=== PATIENT | male | born 1965 | race Hispanic/Latino ===

== ENCOUNTER 2018-05-05 22:50 | Emergency (ER) | payer MEDICARE, MEDICAID ==
[2018-05-05] MEDS ORDERED: NACL 0.9% 1000 ML 1,000 ML IV ONE (23:46)
[2018-05-06 00:12] LABS: Hematocrit 47.2 % (35.5-45.6); Hemoglobin 15.5 gm/dl (11.8-15.2); Mean Corpuscular HGB Conc 33 % (32-34); Mean Corpuscular Volume 86 fl (84-94); Platelet Count 235 K/mm3 (140-440); Red Blood Count 5.48 M/mm3 (3.65-5.03); Red Cell Distribution Width 15.1 % (13.2-15.2)
[2018-05-06] MEDS ORDERED: ZOFRAN IV ONE (00:33)
[2018-05-06] MEDS ORDERED: NACL 0.9% 1000 ML 1,000 ML IV ONE (00:33)
[2018-05-06 00:34] LABS: Alanine Aminotransferase 30 units/L (7-56); Albumin 4.2 g/dL (3.9-5); BUN/Creatinine Ratio 13; Blood Urea Nitrogen 10 mg/dL (9-20); Hemolysis Index 15
--- NOTE | 2018-05-06 01:27 | Emergency Department Report ---
<OSCAR VELEZ - Last Filed: 05/06/18 01:49> ED General Adult HPI - General Chief complaint: Abdominal Pain Stated complaint: ABDOMINAL PAIN Time Seen by Provider: 05/06/18 00:32 Source: patient Mode of arrival: Wheelchair Limitations: Physical Limitation, Other - History of Present Illness Initial comments: Patient presents to the emergency department with his caregiver for abdominal pain nausea vomiting. The patient is hearing impaired and does not have an sound recording technician present. When asked via writing if the patient has any chest pain he responds no. -: Sudden Location: abdomen Radiation: non-radiation Severity scale (0 -10): 7 Consistency: constant Improves with: none Worsens with: none Associated Symptoms: denies other symptoms - Related Data Previous Rx's Medication Instructions Recorded Last Taken Type Dicyclomine [Bentyl] 20 mg PO TID PRN #20 bottle 05/06/18 Unknown Rx Ondansetron [Zofran Odt] 4 mg PO Q6H PRN #20 tab.rapdis 05/06/18 Unknown Rx Promethazine [Phenergan TAB] 25 mg PO Q6HR PRN #12 tab 05/06/18 Unknown Rx Allergies Allergy/AdvReac Type Severity Reaction Status Date / Time carrot Allergy Nausea Verified 05/05/18 23:46 codeine Allergy Headache Verified 05/05/18 23:46 egg Allergy Hives Verified 05/05/18 23:45 latex Allergy Rash Verified 05/05/18 23:45 ED Review of Systems Comment: All other systems reviewed and negative Constitutional: denies: chills, fever Eyes: denies: eye pain, eye discharge, vision change ENT: denies: ear pain, throat pain Respiratory: denies: cough, shortness of breath, wheezing Cardiovascular: denies: chest pain, palpitations Endocrine: no symptoms reported Gastrointestinal: abdominal pain. denies: nausea, diarrhea Genitourinary: denies: urgency, dysuria Musculoskeletal: denies: back pain, joint swelling, arthralgia Skin: denies: rash, lesions Neurological: denies: headache, weakness, paresthesias Psychiatric: denies: anxiety, depression Hematological/Lymphatic: denies: easy bleeding, easy bruising ED Past Medical Hx - Past Medical History Hx Diabetes: Yes Hx Seizures: Yes Additional medical history: Hearing Impaired, Cerebral Palsy - Surgical History Hx Cholecystectomy: Yes - Social History Smoking Status: Never Smoker Substance Use Type: None - Medications Home Medications: Home Medications Medication Instructions Recorded Confirmed Last Taken Type Dicyclomine [Bentyl] 20 mg PO TID PRN #20 bottle 05/06/18 Unknown Rx Ondansetron [Zofran Odt] 4 mg PO Q6H PRN #20 tab.rapdis 05/06/18 Unknown Rx Promethazine [Phenergan TAB] 25 mg PO Q6HR PRN #12 tab 05/06/18 Unknown Rx ED Physical Exam - General Limitations: Physical Limitation, Other ED Medical Decision Making - Lab Data Result diagrams: 05/05/18 23:54 05/05/18 23:54 Lab Results 05/05/18 05/05/18 05/05/18 Range/Units 23:37 23:54 23:54 WBC 18.4 H (4.5-11.0) K/mm3 RBC 5.48 H (3.65-5.03) M/mm3 Hgb 15.5 H (11.8-15.2) gm/dl Hct 47.2 H (35.5-45.6) % MCV 86 (84-94) fl MCH 28 (28-32) pg MCHC 33 (32-34) % RDW 15.1 (13.2-15.2) % Plt Count 235 (140-440) K/mm3 Seg Neutrophils % [employer] Sodium 141 (137-145) mmol/L Potassium 3.8 (3.6-5.0) mmol/L Chloride 99.8 (98-107) mmol/L Carbon Dioxide 25 (22-30) mmol/L Anion Gap 20 mmol/L BUN 10 (9-20) mg/dL Creatinine 0.8 (0.8-1.5) mg/dL Estimated GFR > 60 ml/min BUN/Creatinine Ratio 13 % Glucose 180 H (75-100) mg/dL POC Glucose 136 H (70-105) Calcium 9.0 (8.4-10.2) mg/dL Total Bilirubin 1.10 (0.1-1.2) mg/dL AST 23 (5-40) units/L ALT 30 (7-56) units/L Alkaline Phosphatase 61 (35-129) units/L Total Protein 6.7 (6.3-8.2) g/dL Albumin 4.2 (3.9-5) g/dL Albumin/Globulin Ratio 1.7 % Lipase 74 H (13-60) units/L - Radiology Data Radiology results: report reviewed - Medical Decision Making We were eventually able to contact the patient's sound recording technician who is in route to interpret for the patient ED Disposition Clinical Impression: Abdominal pain, Nausea & vomiting Disposition: -01 TO HOME OR SELFCARE Is pt being admited?: No Does the pt Need Aspirin: No Condition: Stable Instructions: Acute Nausea and Vomiting (ED), Abdominal Pain (ED) Additional Instructions: return if worse Prescriptions: Dicyclomine [Bentyl] 20 mg PO TID PRN #20 bottle PRN Reason: abdominal pain Ondansetron [Zofran Odt] 4 mg PO Q6H PRN #20 tab.rapdis PRN Reason: Nausea Promethazine [Phenergan TAB] 25 mg PO Q6HR PRN #12 tab PRN Reason: Nausea Referrals: MONICA KRISHNA MD [Primary Care Provider] - 3-5 Days [facility] [Provider Group] - 3-5 Days [facility] [Provider Group] - 3-5 Days [facility] [Outside] - 3-5 Days [facility] [Provider Group] - 3-5 Days [facility] [Provider Group] - 3-5 Days <LEONARD REYES S - Last Filed: 05/12/18 18:10> ED Review of Systems ROS: Stated complaint: ABDOMINAL PAIN Other details as noted in HPI ED Course Vital Signs 05/05/18 05/05/18 05/06/18 23:08 23:20 00:10 Temperature 98 F Pulse Rate 118 H 117 H Respiratory 18 Rate Blood Pressure 125/78 125/58 Blood Pressure [Right] O2 Sat by Pulse 96 100 93 Oximetry 05/06/18 05/06/18 05/06/18 00:15 00:31 00:45 Temperature Pulse Rate Respiratory Rate Blood Pressure Blood Pressure [Right] O2 Sat by Pulse 93 95 93 Oximetry 05/06/18 02:32 Temperature 98.5 F Pulse Rate 110 H Respiratory 20 Rate Blood Pressure Blood Pressure 107/75 [Right] O2 Sat by Pulse 98 Oximetry ED Medical Decision Making - Lab Data Result diagrams: 05/05/18 23:54 05/05/18 23:54 - Medical Decision Making The patient's temperature showed up to the emergency department. Using her interpretation services, I reviewed all of the patient's labs and imaging with the patient. I also discussed the outpatient follow-up plan including the prescription medications that will be given. The patient acknowledged his understanding and agreed to the plan. All of his questions have been answered. Critical care attestation.: If time is entered above; I have spent that time in minutes in the direct care of this critically ill patient, excluding procedure time. ED Disposition Is pt being admited?: No
--- NOTE | 2018-05-06 01:27 | Cat Scan Report ---
FINAL REPORT PROCEDURE: CT ABDOMEN PELVIS WO CON TECHNIQUE: Computerized axial tomography of the abdomen and pelvis was performed without intravenous contrast. This study is performed without intravascular contrast material and its sensitivity for ab dominal and pelvic pathology, including neoplasms, inflammation, abscess, free fluid, thrombosis, art erial dissection and infarction, is reduced compared with a contrast enhanced study. HISTORY: ab pain COMPARISON: No prior studies are available for comparison. FINDINGS: Visualized lower thorax: No significant abnormality. Liver: Normal size and attenuation. Spleen: Normal size and attenuation. Gallbladder and biliary system: Normal. Pancreas: Normal. Adrenals: Normal. Kidneys: Both kidneys have a normal size. No hydronephrosis. No renal stones or masses. GI tract: No obstruction. No ileus or enteritis. The cecum, appendix and colon are normal. Lymph nodes and mesentery: Normal. Vasculature: Normal. Bladder: Normal. Reproductive organs: Normal. Peritoneum: No free fluid. Musculoskeletal structures: No significant abnormality. Other: None. IMPRESSION: There is no evidence of intestinal or urinary tract obstruction. No ileus or enteritis. The appendix is normal..
[2018-05-06 02:42] LABS: Amorphous Crystals,Urine Few; Bilirubin,Urine NEG (Negative); Blood,Urine NEG (Negative); Color,Urine Amber (Yellow); Hyaline Casts,Urine 9 /LPF; Mucus,Urine 3+ /HPF; Protein,Urine <15 mg/dL mg/dL (Negative)
[2018-05-06] MEDS ORDERED: BENTYL PO ONE (03:46)
[2018-05-06 06:52] LABS: Band Neutrophils # (Manual) 2.2 K/mm3; Total Cells Counted 100
[2018-05-06 06:53] LABS: Anisocytosis Few; Basophils % (Manual) 0 % (0.0-1.8); Giant Platelets Rare
[2018-05-07 13:04] VITALS: BP 107/75
== END 2018-05-06 04:19 | disposition home or self-care (01) ==
LOC: ED 22:50
DX: R10.9 Unspecified abdominal pain (principal); R11.2 Nausea with vomiting, unspecified; E11.9 Type 2 diabetes mellitus without complications; Z88.5 Allergy status to narcotic agent; Z91.012 Allergy to eggs; Z91.040 Latex allergy status; Z91.018 Allergy to other foods
CPT/HCPCS: 36415; 74176; 80053; 81001; 82962; 83690; 85007; 85025; 96361; 96374; 99284; J2405; J7030